=== PATIENT | female | born 1965 | race Caucasian/White ===

== ENCOUNTER → 2016-11-13 | Outpatient (CLI) | payer BC ==
--- NOTE | 2016-11-13 09:44 | MRI ---
EXAM DESCRIPTION: Lumbar Spine w/o Contrast CLINICAL HISTORY: LOW BACK PAIN COMPARISON: None Available. TECHNIQUE: Multi plantar multi sequence non contrast imaging. FINDINGS: There is good alignment of the lumbar spine. There is no vertebral pathology. No extra spinous abnormality is detected. L1-2: Unremarkable. L2-3: The disc is desiccated. There is mild loss of disc height. Mild endplate degenerative changes are observed. No disc bulge or disc herniation is seen. No neural foraminal disease is detected. L3-4: Unremarkable. L4-5: Unremarkable L5-S1: Unremarkable. IMPRESSION: No significant compromise of the subarachnoid space or exiting nerve roots is detected. No evidence of a significant disc bulge or disc herniation is seen. Electronically signed by: Efra Dorado MD 11/13/2016 9:43 AM CDT
== END | disposition home or self-care (01) ==
LOC: MRI 08:28
PROVIDERS: ATTEND Family Medicine
DX: M54.5 Low back pain (principal)

== ENCOUNTER → 2017-03-08 | Outpatient (CLI) | payer BC | END | disposition home or self-care (01) | LOC: GMAH 15:13 | PROVIDERS: ATTEND Family Medicine | DX: R53.82 Chronic fatigue, unspecified (principal); R53.81 Other malaise ==

== ENCOUNTER → 2017-04-05 | Outpatient (CLI) | payer BC | END | disposition home or self-care (01) | LOC: GMAH 14:16 | PROVIDERS: ATTEND Family Medicine | DX: N30.00 Acute cystitis without hematuria (principal) ==

== ENCOUNTER → 2017-06-04 | Outpatient (CLI) | payer BC | END | disposition home or self-care (01) | LOC: GMAH 14:17 | PROVIDERS: ATTEND Family Medicine | DX: N39.0 Urinary tract infection, site not specified (principal) ==

== ENCOUNTER → 2017-06-07 | Outpatient (CLI) | payer BC ==
--- NOTE | 2017-06-07 17:31 | US ---
EXAM DESCRIPTION: Gall Bladder CLINICAL HISTORY: 52 years Female, RIGHT UPPER QUADRANT PAIN COMPARISON: 01/21/2016 TECHNIQUE: Grayscale, waveform, and color Doppler images of the right upper quadrant are acquired. FINDINGS: Pancreas: The partially visualized pancreatic head is unremarkable Liver: Unremarkable Gallbladder: Layering stones are seen within the gallbladder. No wall thickening. Biliary ducts: The common bile duct measures 4 mm. Right Kidney: There is partially visualized hydronephrosis of the right kidney with probable renal stones. IMPRESSION: Cholelithiasis without other findings of acute cholecystitis. Right hydronephrosis not seen on MRI lumbar spine 11/13/2016. Probable right renal stones as well. Critical findings discussed with Dr. Koenig by Gen Garcia MD at 06/07/2017 5:29 PM CDT by phone. Electronically signed by: Gen Garcia MD 06/07/2017 5:30 PM CDT
--- NOTE | 2017-06-07 17:43 | CT ---
EXAM DESCRIPTION: Abdoment/Pelvis w/o Contrast CLINICAL HISTORY: 52 years Female, RLQ PAIN COMPARISON: Ultrasound of the right upper quadrant same day TECHNIQUE: Contiguous axial CT images of the abdomen and pelvis were acquired without administration of intravenous contrast. Coronal and sagittal reformatted images are provided. This exam was performed according to our departmental dose-optimization program which includes use of Automated Exposure Control, adjustment of the mA and/or kV according to patient size and/or use of iterative reconstruction technique. FINDINGS: Chest base: Coronary artery calcifications. Liver: Two subcentimeter hypoattenuating lesions within the right hepatic lobe are too small to characterize and likely represents small cyst or small angiomas. Gallbladder: No radiopaque stone is identified Spleen: Unremarkable. Adrenals: Unremarkable. Pancreas: Unremarkable. Right Kidney: A cluster of small stones measuring a conglomerate of 6 mm is seen within the distal right ureter, just proximal to the right UVJ resulting in moderate right hydronephrosis and hydroureter. Multiple subcentimeter stones are seen within the right renal pelvis. A probable right upper pole renal cyst is present as well. Left Kidney: Multiple subcentimeter stones are seen within the left renal pelvis without hydronephrosis. Aorta and branch vessels: Advanced aortoiliac calcific atherosclerosis. Lymph nodes: No lymphadenopathy. Bowels: No obstruction. Colon: No wall thickening. Appendix: Normal. Peritoneum: No free air or free fluid. Pelvic organs: Unremarkable. Bladder: Unremarkable. Bones and soft tissues: No acute osseous or soft tissue abnormalities. IMPRESSION: A cluster of 3-4 subcentimeter nonobstructing stones are seen within the distal right ureter, just proximal to the right UVJ, causing moderate right hydronephrosis and hydroureter. Obstructing stones measure a conglomerate of approximately 6 mm. Bilateral nonobstructing renal stones. Electronically signed by: Gen Garcia MD 06/07/2017 5:42 PM CDT
== END | disposition home or self-care (01) ==
LOC: RAD 16:23
PROVIDERS: ATTEND Family Medicine
DX: R10.31 Right lower quadrant pain (principal)

== ENCOUNTER → 2018-02-08 | Outpatient (CLI) | payer OTHER ==
--- NOTE | 2018-02-08 16:33 | CT ---
EXAM DESCRIPTION: Abdoment/Pelvis w/o Contrast CLINICAL HISTORY: CALCULUS OF KIDNEY COMPARISON: June 07, 2017 TECHNIQUE: Noncontrast transaxial CT images of the abdomen and pelvis are obtained. This exam was performed according to our departmental dose-optimization program, which includes automated exposure control, adjustment of the mA and/or kV according to patient size and/or use of iterative reconstruction technique . FINDINGS: Visualized lung bases are unremarkable. Given the limitations of a noncontrast exam there is a stable cyst of the dome of the right lobe liver and ill-defined less than 1 cm hypodensity in the inferior right lobe. Spleen, pancreas, adrenal glands, and contracted gallbladder are unremarkable. Moderate bilateral nonobstructing nephrolithiasis is again seen there has been interval resolution of the previously seen right hydronephrosis and previously seen ureteral calculus. Calcifications in the upper pole of the left kidney seen on previous exam are reduced. There is a new 7 mm calcification in the distal left ureter with mild left hydronephrosis and hydroureter. AP diameter of the left renal pelvis measures 2.7 cm. Urinary bladder is unremarkable. The uterus is unremarkable. No abnormal adnexal mass is seen. The appendix is normal. Stomach is poorly distended. No small bowel obstruction. No inflammatory changes of the bowel or abnormal fluid collections are seen. No pathologic lymphadenopathy. IMPRESSION: Interval resolution of right distal ureteral calculus and right hydronephrosis. Interval development of mild left hydronephrosis and hydroureter secondary to a 7 mm calcification in the distal ureter. Bilateral nonobstructing nephrolithiasis is again seen. Electronically signed by: Alphonso Green MD 02/08/2018 4:32 PM CDT
== END ==
LOC: RAD 15:45
PROVIDERS: ATTEND Family Medicine
DX: N13.2 Hydronephrosis with renal and ureteral calculous obstruction (principal)

== ENCOUNTER → 2018-03-31 | Outpatient (CLI) | payer BC | LOC: GMAJ 16:45 | PROVIDERS: ATTEND Family Medicine | DX: M06.9 Rheumatoid arthritis, unspecified (principal) ==

== ENCOUNTER 2018-05-27 03:34 | Emergency (ER) | payer BC ==
--- NOTE | 2018-05-27 03:44 | ED.PDOC ---
History of Present Illness - General Chief Complaint: Back Pain or Injury Stated Complaint: lower back pain Time Seen by Provider: 05/27/18 03:38 Source: patient, EMS Exam Limitations: no limitations - History of Present Illness Initial Comments: Mary Hendrickson 53 y/o female with history of bulging disc lumbar spine L4-L5 stated went to the bathroom early yesterday morning then on getting back to bed and tried to turn felt sharp pains on her back going down left leg then tried to move and get up stated feels back goes into muscle spasm since yesterday then she had been in bed all day yesterday and unable to get up because of pain and spasm also felt both sides of back aching with pain/spasm radiation down to both her legs.Denies bowel or bladder dysfunction no weakness,or numbness.Denies history of fall.Had seen back specialist in [place] and was given epidural steroid injection 3-4x 3 years ago and pain subsided.Had MRI- Lumbar 09/26/14-L4-L5 minimal broad based disc bulge more on the left than rightw /minimal effacement of thecal sac and repeat MRI 11/13/16-no disc bulge or disc herniation seen. Timing/Duration: 24 hours Quality/Severity: sharpness Back Pain Location: lumbar spine Back Pain Radiation: lower legs Method of Injury/Prior Injury: other - NONE Improving Factors: rest Worsening Factors: movement Associated Symptoms: muscle spasms, lower back pain, other - see hpi Allergies/Adverse Reactions: Allergies Codeine Allergy (Verified 05/27/18 04:04) Home Medications: Ambulatory Orders Budesonide-Formoterol Fumarate [Symbicort 160-4.5 Mcg/Act] 2 inh INH PRN Carisoprodol [Soma] 350 mg PO TID PRN #10 tab 05/27/18 Diclofenac [Zorvolex] 35 mg PO DAILY 05/27/18 Duloxetine HCl [Duloxetine HCl] 30 mg PO DAILY 05/27/18 Lisinopril [Prinivil] 20 mg PO DAILY 05/27/18 Simvastatin [Simvastatin] 40 mg PO DAILY 05/27/18 Review of Systems - Review of Systems Constitutional: States: no symptoms reported EENTM: States: no symptoms reported Respiratory: States: no symptoms reported Cardiology: States: no symptoms reported Gastrointestinal/Abdominal: States: no symptoms reported Genitourinary: States: no symptoms reported Musculoskeletal: States: see HPI, back pain Skin: States: no symptoms reported Neurological: States: other - radiculopathy Past Medical History (General) - Patient Medical History Hx Stroke: No Hx Congestive Heart Failure: No Hx Diabetes: No Hx MRSA: No Hx Other PMH: Yes - fibromyalgia;nephrolithiasis Surgical History: other - lithotripsy - Vaccination History Hx Influenza Vaccination: Yes - 2013 Hx Pneumococcal Vaccination: No - Social History Hx Tobacco Use: Yes - quit 1 year ago Hx Alcohol Use: No Hx Substance Use: No Hx Physical Abuse: No Hx Emotional Abuse: No - Activities of Daily Living Patient Lives Alone: No - Female History Patient : No Family Medical History - Family History Mother Living Status: Age at (years of age): 65 Cause of : lung CA Hx Cardiac Disease: Yes - parents Hx Family Diabetes: Yes - dad Hx Family Cancer: Yes Father Living Status: Still Living Hx Family Diabetes: Yes Physical Exam - Physical Exam General Appearance: Alert, Comfortable, No apparent distress Eyes, Ears, Nose, Throat Exam: normal ENT inspection Neck Exam: non-tender, full range of motion, normal alignment, normal inspection Cardiovascular/Respiratory: regular rate, rhythm, no M/R/G, normal peripheral pulses Peripheral Pulses: radial,right: 2+, radial,left: 2+, dorsalis pedis,right: 2+, dorsalis pedis,left: 2+ Gastrointestinal/Abdominal: normal bowel sounds, non tender, soft, no pulsatile mass Back Exam: normal inspection, no CVA tenderness, no vertebral tenderness, muscle spasm - paraspinous lumbar muscle Extremity Exam: no evidence of injury, normal range of motion, non-tender, no pedal edema Neurologic: no motor/sensory deficits, alert, oriented x 3, other - DTR 2+ bilaterally patellar,negative SLR test bilaterally Skin Exam: normal color, warm/dry Progress - Progress Progress: 05/27/18 04:24 Vital Signs - 8 hr 05/27/18 03:44 Temperature 98.9 F Pulse Rate [ 79 left] Respiratory 18 Rate Blood Pressure 133/65 [left] O2 Sat by Pulse 97 Oximetry - Results/Orders Results/Orders: 05/27/18 03:45 IV Care:Saline Lock per Protoc QSHIFT 05/27/18 05:36 URINALYSIS Stat Laboratory Results - last 24 hr 05/27/18 05/27/18 05/27/18 03:45 03:45 04:05 WBC 9.4 RBC 4.53 Hgb 13.9 Hct 41.4 MCV 91.2 MCH 30.7 MCHC 33.7 RDW 13.9 Plt Count 425 H MPV 7.5 Absolute Neuts (auto) 7.30 H Absolute Lymphs (auto) 1.30 Absolute Monos (auto) 0.50 Absolute Eos (auto) 0.10 Absolute Basos (auto) 0.10 Neutrophils % 78.1 H Lymphocytes % 13.9 L Monocytes % 5.7 Eosinophils % 1.4 Basophils % 0.9 Sodium 139 Potassium 3.9 Chloride 103 Carbon Dioxide 28 Anion Gap 11.9 L BUN 22 H Creatinine 0.58 L BUN/Creatinine Ratio 37.9 H Random Glucose 110 H Serum Osmolality 281.5 Calcium 9.2 Total Bilirubin 0.3 AST 60 H ALT 100 H Alkaline Phosphatase 72 Creatine Kinase Serum Total Protein 7.1 Albumin 4.0 Globulin 3.1 Albumin/Globulin Ratio 1.3 Serum HCG, Qual Negative 05/27/18 04:05 WBC RBC Hgb Hct MCV MCH MCHC RDW Plt Count MPV Absolute Neuts (auto) Absolute Lymphs (auto) Absolute Monos (auto) Absolute Eos (auto) Absolute Basos (auto) Neutrophils % Lymphocytes % Monocytes % Eosinophils % Basophils % Sodium Potassium Chloride Carbon Dioxide Anion Gap BUN Creatinine BUN/Creatinine Ratio Random Glucose Serum Osmolality Calcium Total Bilirubin AST ALT Alkaline Phosphatase Creatine Kinase 80 Serum Total Protein Albumin Globulin Albumin/Globulin Ratio Serum HCG, Qual Departure - Departure Clinical Impression: Abnormal liver enzymes Acute low back pain with left-sided sciatica Qualifiers: Back pain laterality: left Qualified Code(s): M54.42 - Lumbago with sciatica, left side Time of Disposition: 06:29 Disposition: Discharge to Home or Self Care Condition: Fair Departure Forms: ED Discharge - Pt. Copy, Patient Portal Self Enrollment Instructions: DI for Low Back Pain, DI for Back Spasm Referrals: Mayur Koenig MD [Primary Care Provider] - 1-2 Weeks Prescriptions: Carisoprodol [Soma] 350 mg PO TID PRN #10 tab PRN Reason: Muscle Spasms Home Medications: Ambulatory Orders Budesonide-Formoterol Fumarate [Symbicort 160-4.5 Mcg/Act] 2 inh INH PRN Carisoprodol [Soma] 350 mg PO TID PRN #10 tab 05/27/18 Diclofenac [Zorvolex] 35 mg PO DAILY 05/27/18 Duloxetine HCl [Duloxetine HCl] 30 mg PO DAILY 05/27/18 Lisinopril [Prinivil] 20 mg PO DAILY 05/27/18 Simvastatin [Simvastatin] 40 mg PO DAILY 05/27/18 Additional Instructions: Follow up with primary Md 30 May 2018;Retirn to ER as needed
[2018-05-27] MEDS ORDERED: MORPHINE SULFATE INJ 10 MG/ML VIAL IV ONE (03:45)
[2018-05-27] MEDS ORDERED: DEXAMETHASONE INJ 10 MG/ML VIAL IV ONE (03:45)
[2018-05-27] MEDS ORDERED: ORPHENADRINE CITRATE 30 MG/ML AMP IV ONE (03:45)
[2018-05-27] MEDS ORDERED: LACTATED RINGERS 1,000 ML IVS ONE (03:47)
[2018-05-27 03:58] VITALS: TEMP 98.9
[2018-05-27 05:37] VITALS: O2SAT 96
--- NOTE | 2018-05-27 06:16 | CT ---
CT lumbar spine without contrast on 05/27/2018 CLINICAL INDICATION: Low back pain with radiculitis TECHNIQUE: Multiple axial images are obtained throughout the lumbar spine without the administration of contrast. Sagittal and coronal reformatted images are also performed and reviewed. This exam was performed according to our departmental dose-optimization program, which includes automated exposure control, adjustment of the mA and/or kV according to patient size and/or use of iterative reconstruction technique. Total DLP is 471.98 mGy*cm. COMPARISON: 02/08/2018 FINDINGS: Vascular calcifications are noted. Reformatted images reveal normal alignment of the lumbar spine. Nonobstructing bilateral renal stones are noted. There are no acute fracture lines. Facet arthropathy is noted in the lower lumbar spine. The SI joints are well aligned. No definite disc herniation is noted. No level of significant canal stenosis or foraminal narrowing is noted. IMPRESSION: 1. No acute abnormality in the lumbar spine. 2. Bilateral nephrolithiasis. Electronically signed by: Michael Mandujano 05/27/2018 6:15 AM CDT
[2018-05-27] MEDS ORDERED: HYDROCOD/APAP 7.5/325 (ER DISP) #3 TAB PO ONE (06:33)
[2018-05-27 06:38] VITALS: BP 140/81
== END 2018-05-27 06:55 | disposition home or self-care (01) ==
LOC: ER 03:34
DX: M54.42 Lumbago with sciatica, left side (principal); R79.89 Other specified abnormal findings of blood chemistry; M79.7 Fibromyalgia; Z87.891 Personal history of nicotine dependence; Z79.899 Other long term (current) drug therapy; Z88.5 Allergy status to narcotic agent
CPT/HCPCS: 72131; 80053; 81001; 82550; 84703; 85025; J1100; J2270; J2360; J7120

== ENCOUNTER → 2019-02-01 | Outpatient (CLI) | payer BC ==
--- NOTE | 2019-02-02 09:59 | MRI ---
EXAM DESCRIPTION: Lumbar Spine w/o Contrast : Magnetic Resonance Imaging. CLINICAL HISTORY: DISC DISPLACEMENT COMPARISON: MRI scan lumbar spine 11/13/2016. TECHNIQUE: Multiplanar, multiple standard sequences, non contrast MRI, lumbar spine. FINDINGS: L5-S1: Disc is visualized on axial T2 series 501, image 3. Normal signal in the disc and disc space preserved. Minimal bilateral facet arthrosis and ligaments unremarkable. Mild to moderate foraminal narrowing. Canal is patent. No change from the prior study. L4-L5: Disc desiccation with disc space maintained. Trace posterior bulge with hyperintense T2 annular fissure. Mild canal narrowing. Minimal arthrosis left facet with thickening of the flavum ligament. Bilateral mild canal narrowing. Stable since the prior study. L3-L4: Disc desiccation with disc space maintained no bulging. Minimal facet arthrosis and flavum ligament thickening on the left. Minimal posterior endplate reactive changes. Mild bilateral foraminal narrowing. Stable since the prior study. L2-L3: Disc desiccation with minimal disc space loss. Anterior bulging. Anterior and posterior endplate reactive changes with no posterior bulging. Posterior elements unremarkable. Canal and foramina are patent. No change from the prior study. L1-L2: Normal signal in the disc and disc space preserved. Posterior elements unremarkable. Canal and bilateral foramina are patent. Stable since the prior study. T12-L1: Normal signal in the disc with disc space preserved. Posterior elements unremarkable. Canal and foramina are patent. No change from the prior study. Conus terminates at L1. Normal signal in the cord and the conus. No scoliosis. Paravertebral soft tissues unremarkable.. Normal marrow signal in the remaining vertebral bodies and the posterior elements. Vertebral bodies are not compressed at any level. IMPRESSION: 1. Minimal arthrosis and hypertrophic changes in the facets and hypertrophic ligaments at several levels. Stable since the prior study. No significant canal or foraminal narrowing at any level. No disc herniation. 2. Tiny posterior bulge L4-L5 with annular fissure. No change since the prior study. Electronically signed by: Raciel Richardson MD 02/02/2019 9:57 AM CDT
== END ==
LOC: MRI 12:49
PROVIDERS: ATTEND Family Medicine
DX: M51.27 Other intervertebral disc displacement, lumbosacral region (principal); M51.86 Other intervertebral disc disorders, lumbar region; M47.896 Other spondylosis, lumbar region

== ENCOUNTER → 2019-08-07 | Outpatient (CLI) | payer BC | LOC: GMAJ 10:21 | PROVIDERS: ATTEND Family Medicine | DX: R74.8 Abnormal levels of other serum enzymes (principal) ==

== ENCOUNTER → 2019-08-08 | Outpatient (CLI) | payer BC ==
--- NOTE | 2019-08-08 11:48 | CT ---
EXAM DESCRIPTION: Abdomen w/Contrast CLINICAL HISTORY: ABNORMAL LEVELS OF OTHER SERUM ENZYMES COMPARISON: February 08, 2018 TECHNIQUE: Postcontrast CT images of the abdomen are obtained. This exam was performed according to our departmental dose-optimization program, which includes automated exposure control, adjustment of the mA and/or kV according to patient size and/or use of iterative reconstruction technique . FINDINGS: Visualized lung bases show no acute findings. Heterogeneous decreased attenuation of the liver compared to the spleen without focal enhancing hepatic mass. Right lobe of the liver measures 16.5 cm AP which is borderline enlarged. Fluid attenuation 14 mm cyst in the dome of the right lobe liver. The spleen, pancreas, adrenal glands, and gallbladder are unremarkable. Moderate calcific atherosclerotic disease of the abdominal aorta and branch vessels. Bilateral nonobstructing nephrolithiasis. The largest calcification in an upper pole calyx of the right kidney measures 10 mm. Most calcifications are seen in the lower pole calyces of the left kidney measuring maximum 7 mm. No ureteral obstruction. Small less than 1 cm cortical cyst of the upper pole right kidney is seen. No pathologic lymphadenopathy in the abdomen or retroperitoneum. Stomach shows no mass lesion or inflammatory changes. Visualized small bowel and colon show no acute findings. Mild scattered diverticuli of the descending colon. The appendix is partly visualized. IMPRESSION: No acute findings on CT of the abdomen. Mild diffuse fatty infiltration of the liver seen. Mild colon diverticulosis without CT evidence of diverticulitis. No adrenal gland mass. Nonobstructing bilateral nephrolithiasis. 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
== END ==
LOC: CT 07:54
PROVIDERS: ATTEND Family Medicine
DX: R74.8 Abnormal levels of other serum enzymes (principal); K76.0 Fatty (change of) liver, not elsewhere classified; K57.30 Diverticulosis of large intestine without perforation or abscess without bleeding; N20.0 Calculus of kidney

== ENCOUNTER 2019-11-15 21:16 | Emergency (ER) | payer BC ==
[2019-11-15] MEDS ORDERED: SODIUM CHLORIDE 0.9% (FLUSH) 10 ML SYG IV PRN (21:25)
[2019-11-15] MEDS ORDERED: ONDANSETRON INJ 4 MG/2 ML VIAL IV ONE (21:25)
[2019-11-15 21:40] VITALS: TEMP 96.7
[2019-11-15] MEDS ORDERED: fentaNYL CITRATE INJ 50 MCG/ML AMP IV ONE (22:47)
[2019-11-15] MEDS ORDERED: MEPERIDINE HCL 50 MG/ML VIAL IV ONE (23:12)
--- NOTE | 2019-11-15 23:26 | CT ---
PROCEDURE: CT Abdomen w/Contrast CLINICAL HISTORY: 54 years Female abdominal pain TECHNIQUE: Contiguous axial images obtained through the abdomen following intravenous contrast administration. Coronal and sagittal reformatted images provided. This CT exam was performed according to our departmental dose-optimization program, which includes one or more of the following dose reduction techniques: automated exposure control, adjustment of the mA and/or kV according to patient size, and/or use of iterative reconstruction technique. COMPARISON: 02/08/2018 FINDINGS: There is steatosis of the liver, which contains a 1.4 cm cyst. The lung bases, biliary tree, gallbladder, pancreas, spleen, and adrenal glands are normal. Again seen are nonobstructing intrarenal calculi bilaterally. There is no hydronephrosis or pyelonephritis on either side. No visualized bowel inflammation or evidence of obstruction. No free intraperitoneal air or ascites. The distal appendix is normal. The proximal appendix was not imaged. There is extensive atherosclerosis without abdominal aortic aneurysm or retroperitoneal hemorrhage. No acute osseous abnormality. IMPRESSION: No acute findings in the abdomen. Steatosis of the liver, which contains a small cyst. Bilateral nephrolithiasis without hydronephrosis or pyelonephritis. Electronically signed by: Tiana Estevez MD 11/15/2019 11:24 PM CDT
--- NOTE | 2019-11-16 00:14 | ED.PDOC ---
History of Present Illness - General Chief Complaint: Abdominal Pain Stated Complaint: upper abdomen pain Time Seen by Provider: 11/15/19 21:25 Information Source: patient, RN notes reviewed, Vital Signs reviewed, family - Exam Limitations: no limitations - History of Present Illness Initial Comments: Patient is a 54-year-old white female who is obese who presents with complaints of diffuse abdominal pain after eating. This happened twice today. Patient has a history of gallstones. It is been many years since she had an ultrasound that confirmed the gallstones are still in place. Patient denies any fever, chills, diarrhea. She denies any chest pain, shortness of breath, dizziness or blurry vision. The pain was made worse by eating. Better when she quit eating. It took a few hours for the pain to subside a little bit. The pain is cramping and stabbing in nature. It is nonradiating. It is diffuse throughout the abdomen. Abdominal Pain Onset Location: generalized abdomen Pain Radiation: no radiation Quality: severe, sharpness, waxing/waning Timing/Duration: 4-6 hours Improving Factors: rest Worsening Factors: eating Associated Symptoms: nausea/vomiting - Nausea only Review of Systems - Review of Systems Constitutional: States: no symptoms reported, see HPI. Denies: chills, fever, weakness EENTM: States: no symptoms reported. Denies: blurred vision, double vision, throat pain, throat swelling Respiratory: States: no symptoms reported. Denies: cough, short of breath, stridor, wheezing Cardiology: States: no symptoms reported. Denies: chest pain, palpitations, syncope Gastrointestinal/Abdominal: States: see HPI, abdominal pain, nausea. Denies: diarrhea, vomiting Genitourinary: States: no symptoms reported. Denies: discharge, dysuria, frequency Musculoskeletal: States: no symptoms reported. Denies: back pain, neck pain Skin: States: no symptoms reported. Denies: change in color, rash Neurological: States: no symptoms reported. Denies: headache, numbness, tingling, weakness Endocrine: States: no symptoms reported. Denies: intolerance to cold, intolerance to heat Hematologic/Lymphatic: States: no symptoms reported. Denies: anemia, easy bruising All other Systems: Reviewed and Negative Past Medical History (General) - Patient Medical History Hx Seizures: No Hx Stroke: No Hx Dementia: No Hx Asthma: No Hx of COPD: No Hx Cardiac Disorders: No Hx Congestive Heart Failure: No Hx Pacemaker: No Hx Hypertension: Yes Hx Thyroid Disease: No Hx Diabetes: No Hx Gastroesophageal Reflux: No Hx Renal Disease: No Hx of HIV: No Hx MRSA: No Surgical History: no surgical history - Vaccination History Hx Tetanus, Diphtheria Vaccination: No Hx Influenza Vaccination: Yes Hx Pneumococcal Vaccination: No - Social History Hx Tobacco Use: Yes - quit 1 year ago Hx Alcohol Use: No Hx Substance Use: No Hx Physical Abuse: No Hx Emotional Abuse: No - Female History Patient : No Family Medical History - Family History Mother Living Status: Age at (years of age): 65 Cause of : lung CA Hx Cardiac Disease: Yes - parents Hx Family Diabetes: Yes - dad Hx Family Cancer: Yes Father Living Status: Still Living Hx Family Diabetes: Yes Physical Exam - Physical Exam General Appearance: Alert, Anxious, Obvious distress, Well Developed, Well Groomed, Well Hydrated Eyes, Ears, Nose, Throat Exam: PERRL/EOMI, normal ENT inspection, pharynx normal Neck: non-tender, full range of motion, supple, normal inspection Respiratory: chest non-tender, lungs clear, normal breath sounds, no respiratory distress Cardiovascular/Chest: normal peripheral pulses, regular rate, rhythm, no edema Peripheral Pulses: No deficit Gastrointestinal/Abdominal: normal bowel sounds, soft, no organomegaly, no pulsatile mass, tenderness - Generalized Back Exam: normal inspection, no CVA tenderness, no vertebral tenderness Extremity: non-tender, normal inspection, no pedal edema, no calf tenderness 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 11/16/19 00:56 Patient's pain has improved markedly after pain medicines and IM Bentyl. Patient has no acute signs of infection on CT nor by lab work. Her LFTs are minimally elevated and do not indicate an acute obstruction. Plan on discharge home with a prescription for Bentyl. Patient to follow-up with the surgeon tomorrow for an outpatient ultrasound and further evaluation for surgical intervention. I discussed this plan of care with the patient and her and they voiced understanding and agreement. Moe Chahal M.D. #[id number] - Results/Orders Results/Orders: 11/15/19 Abdomen/Pelvis w/Contrast [CT] Stat 11/15/19 21:25 IV Care:Saline Lock per Protoc QSHIFT Sodium Chloride 0.9% (Flush) [Saline Flush Syringe] 10 ml IV PRN PRN 11/15/19 21:26 Hold Metformin x 48Hrs [id number] 11/15/19 21:30 EKG STAT 11/15/19 21:50 Urine Culture Stat Laboratory Results - last 24 hr 11/15/19 11/15/19 11/15/19 21:30 21:30 21:30 WBC 8.7 RBC 4.43 Hgb 13.7 Hct 39.9 MCV 90.0 MCH 30.9 MCHC 34.3 RDW 14.0 Plt Count 463 H MPV 8.1 Absolute Neuts (auto) 4.80 Absolute Lymphs (auto) 3.00 Absolute Monos (auto) 0.50 Absolute Eos (auto) 0.40 Absolute Basos (auto) 0.00 Neutrophils % 55.1 Lymphocytes % 34.4 Monocytes % 5.8 Eosinophils % 4.4 Basophils % 0.3 Sodium 142 Potassium 3.6 Chloride 101 Carbon Dioxide 29 Anion Gap 15.6 BUN 15 Creatinine 0.77 BUN/Creatinine Ratio 19.5 Random Glucose 113 H Serum Osmolality 284.8 Calcium 9.5 Total Bilirubin 0.3 Direct Bilirubin 0.1 Indirect Bilirubin 0.2 AST 41 ALT 63 H Alkaline Phosphatase 88 Serum Total Protein 7.9 Albumin 4.4 Lipase 46 Urine Color Urine Appearance Urine pH Ur Specific Cordell Urine Protein Urine Glucose (UA) Urine Ketones Urine Blood Urine Nitrite Urine Bilirubin Urine Urobilinogen Ur Leukocyte Esterase Urine RBC Urine WBC Ur Epithelial Cells Urine Bacteria 11/15/19 21:50 WBC RBC Hgb Hct MCV MCH MCHC RDW Plt Count MPV Absolute Neuts (auto) Absolute Lymphs (auto) Absolute Monos (auto) Absolute Eos (auto) Absolute Basos (auto) Neutrophils % Lymphocytes % Monocytes % Eosinophils % Basophils % Sodium Potassium Chloride Carbon Dioxide Anion Gap BUN Creatinine BUN/Creatinine Ratio Random Glucose Serum Osmolality Calcium Total Bilirubin Direct Bilirubin Indirect Bilirubin AST ALT Alkaline Phosphatase Serum Total Protein Albumin Lipase Urine Color Yellow Urine Appearance Clear Urine pH 7.0 Ur Specific Cordell 1.025 Urine Protein Negative Urine Glucose (UA) Negative Urine Ketones Negative Urine Blood Trace-intact H Urine Nitrite Negative Urine Bilirubin Negative Urine Urobilinogen 0.2 Ur Leukocyte Esterase Small H Urine RBC 1-3 Urine WBC 3-5 H Ur Epithelial Cells 0-1 Urine Bacteria 0 EKG performed 15 November 2019 at 2148 hrs.: Normal sinus rhythm at 80 bpm, nonspecific ST changes, abnormal EKG. No comparison EKG available. PROCEDURE: CT Abdomen/Pelvis w/Contrast CLINICAL HISTORY: 54 years Female ABD PAIN TECHNIQUE: Contiguous axial images obtained through the abdomen and pelvis following intravenous contrast administration. Coronal and sagittal reformatted images provided. This CT exam was performed according to our departmental dose-optimization program, which includes one or more of the following dose reduction techniques: automated exposure control, adjustment of the mA and/or kV according to patient size, and/or use of iterative reconstruction technique. COMPARISON: Comparison is made with the prior exam dated 08/08/2019. FINDINGS: The lung bases are clear. There is steatosis of the liver, which contains a 1.4 cm cyst. The gallbladder is distended but does not appear inflamed. No intra or extrahepatic biliary dilatation. The pancreas, spleen, and adrenal glands are normal. Again seen are nonobstructing intrarenal calculi bilaterally. There is no hydronephrosis or pyelonephritis on either side. The uterus, adnexa, and urinary bladder are normal. Scattered colonic diverticuli without bowel inflammation, obstruction, pneumatosis, free intraperitoneal air, abscess, or ascites. Normal appendix. Extensive atherosclerosis without abdominal aortic aneurysm or retroperitoneal hemorrhage. Mild chronic degenerative changes in the spine without acute fracture or aggressive osseous lesion. IMPRESSION: The gallbladder is distended but does not appear inflamed. If there is right upper quadrant pain, ultrasound recommended. Stable bilateral nephrolithiasis without urinary obstruction or pyelonephritis. Colonic diverticulosis without diverticulitis. Electronically signed by: Tiana Estevez MD 11/16/2019 12:15 AM CDT Departure - Departure Clinical Impression: Elevated ALT measurement, Abnormal liver enzymes Abdominal pain Qualifiers: Abdominal location: generalized Qualified Code(s): R10.84 - Generalized abdominal pain Time of Disposition: 00:58 Disposition: Discharge to Home or Self Care Condition: Good Departure Forms: ED Discharge - Pt. Copy, Patient Portal Self Enrollment Instructions: DI for Abdominal Pain-Adult, Gallstones (DC) Diet: low fat, low cholesterol Activity: increase activity as tolerated Referrals: Gen Jimenes MD [Primary Care Provider] - 1-2 Weeks Florencio Champagne MD [Active Staff] - 1-5 Days Prescriptions: Dicyclomine HCl [Bentyl] 20 mg PO Q6H #20 tab Home Medications: Ambulatory Orders Budesonide-Formoterol Fumarate [Symbicort 160-4.5 Mcg/Act] 2 inh INH PRN 05/27/18 Carisoprodol [Soma] 350 mg PO TID PRN #10 tab 05/27/18 Diclofenac [Zorvolex] 35 mg PO DAILY 05/27/18 Duloxetine HCl 30 mg PO DAILY 05/27/18 Lisinopril [Prinivil] 20 mg PO DAILY 05/27/18 Simvastatin 40 mg PO DAILY 05/27/18 Dicyclomine HCl [Bentyl] 20 mg PO Q6H #20 tab 11/16/19
--- NOTE | 2019-11-16 00:17 | CT ---
PROCEDURE: CT Abdomen/Pelvis w/Contrast CLINICAL HISTORY: 54 years Female ABD PAIN TECHNIQUE: Contiguous axial images obtained through the abdomen and pelvis following intravenous contrast administration. Coronal and sagittal reformatted images provided. This CT exam was performed according to our departmental dose-optimization program, which includes one or more of the following dose reduction techniques: automated exposure control, adjustment of the mA and/or kV according to patient size, and/or use of iterative reconstruction technique. COMPARISON: Comparison is made with the prior exam dated 08/08/2019. FINDINGS: The lung bases are clear. There is steatosis of the liver, which contains a 1.4 cm cyst. The gallbladder is distended but does not appear inflamed. No intra or extrahepatic biliary dilatation. The pancreas, spleen, and adrenal glands are normal. Again seen are nonobstructing intrarenal calculi bilaterally. There is no hydronephrosis or pyelonephritis on either side. The uterus, adnexa, and urinary bladder are normal. Scattered colonic diverticuli without bowel inflammation, obstruction, pneumatosis, free intraperitoneal air, abscess, or ascites. Normal appendix. Extensive atherosclerosis without abdominal aortic aneurysm or retroperitoneal hemorrhage. Mild chronic degenerative changes in the spine without acute fracture or aggressive osseous lesion. IMPRESSION: The gallbladder is distended but does not appear inflamed. If there is right upper quadrant pain, ultrasound recommended. Stable bilateral nephrolithiasis without urinary obstruction or pyelonephritis. Colonic diverticulosis without diverticulitis. Electronically signed by: Tiana Estevez MD 11/16/2019 12:15 AM CDT
[2019-11-16] MEDS ORDERED: fentaNYL CITRATE INJ 50 MCG/ML AMP IV ONE (00:43)
[2019-11-16] MEDS ORDERED: DICYCLOMINE HCL INJ 20 MG/2 ML AMP IM ONE (00:43)
[2019-11-16 01:06] VITALS: BP 140/94; O2SAT 98
== END 2019-11-16 01:12 | disposition home or self-care (01) ==
LOC: ER 21:16
DX: R10.84 Generalized abdominal pain (principal); R94.5 Abnormal results of liver function studies; R74.0 Nonspecific elevation of levels of transaminase and lactic acid dehydrogenase [LDH]; R11.0 Nausea; N20.0 Calculus of kidney; K57.30 Diverticulosis of large intestine without perforation or abscess without bleeding; I10 Essential (primary) hypertension; Z87.891 Personal history of nicotine dependence
CPT/HCPCS: 36415; 74177; 80048; 80076; 81001; 83690; 85025; 87086; 93005; J0500; J2175; J2405; J3010

== ENCOUNTER 2019-12-22 08:00 | Day surgery (SDC) | payer BC ==
[~2019-12-22 08:00] MED LIST: DEXAMETHASONE INJ 10 MG/ML VIAL ONE; FAMOTIDINE 10 MG/ML ML IV ONE; KETOROLAC TROMETHAMINE INJ 30 MG/ML VIAL ONE; LIDOCAINE 1% 10 ML VIAL INJ ONE; MAGNESIUM SULFATE INJ 1 GM/2 ML VIAL ONE; PROPOFOL 200 MG/20 ML VIAL IV ONE; SODIUM CHLORIDE 0.9% 50 ML VIAL ONE; diphenhydrAMINE HCL 50 MG/ML VIAL ONE
[2019-12-22] MEDS ORDERED: LACTATED RINGERS 1,000 ML ONE ×2 (08:45→12:02)
[2019-12-22] MEDS ORDERED: LACTATED RINGERS 1,000 ML IVS ONE (09:15)
[2019-12-22] MEDS ORDERED: BUPIVACAINE 0.5% 30 ML VIAL INJ ONE ×2 (09:38→09:50)
[2019-12-22] MEDS ORDERED: KETAMINE HCL 100 MG/ML VIAL ONE (09:40)
[2019-12-22] MEDS ORDERED: ROCURONIUM BROMIDE 10 MG/ML VIAL ONE (09:40)
[2019-12-22] MEDS ORDERED: fentaNYL CITRATE INJ 50 MCG/ML 2 ML AMP ONE (09:40)
[2019-12-22] MEDS ORDERED: MIDAZOLAM INJ 2 MG/2 ML VIAL ONE (09:41)
[2019-12-22] MEDS ORDERED: SUGAMMADEX SODIUM 200 MG/2 ML VIAL IV ONE (10:41)
[2019-12-22] MEDS ORDERED: LEVALBUTEROL NEBS 1.25 MG/3 ML VIAL NEB ONE (11:03)
[2019-12-22] MEDS ORDERED: ONDANSETRON INJ 4 MG/2 ML VIAL ONE (11:14)
[2019-12-22] MEDS: HYDROmorphone HCL INJ 2 MG/ML VIAL ONE ×3 (11:21→12:03)
--- NOTE | 2019-12-22 11:30 | OP ---
DATE OF PROCEDURE: 12/22/19 PREOPERATIVE DIAGNOSIS: 1. Symptomatic gallstones. POSTOPERATIVE DIAGNOSIS: 1. Chronic cholecystitis. PROCEDURE: 1. Laparoscopic cholecystectomy. SURGEON: Gen Cyr MD. ANESTHESIA: General and local. FINDINGS: There is evidence of chronic inflammation and scarred gallbladder. Anatomy was poorly visualized. COMPLICATIONS: None. ESTIMATED BLOOD LOSS: Minimal. SPECIMEN: Gallbladder. PLAN: Discharge. INDICATION: As stated. PROCEDURE: General anesthesia was induced. The patient was prepped and draped in sterile fashion. Marcaine 0.5% with epinephrine was used at all incision sites. While maintaining upward traction, a radha was made near the base of the umbilicus. Veress needle was introduced. There was free flow of fluid into the peritoneal cavity which was insufflated to an appropriate level with CO2 gas. The 5 mm trocar was placed followed by the camera. There was no evidence of bleeding or bowel injury. The patient was positioned and subxiphoid and lateral ports were placed under direct visualization without difficulty. The gallbladder fundus was identified. It was grasped and retracted superiorly and laterally. There were anterior scars that were taken down. The infundibulum was grasped. The infundibular structures were dissected free. The duct and artery were triply ligated. The gallbladder was then dissected off the fossa. In the mid fossa, there was small extravascular branch going into the posterior wall. This was clipped as well. Once the gallbladder was removed from the fossa, it was removed from the abdomen in the EndoCatch bag. The fossa was examined. Minimal hemostasis was necessary. The clips were intact. There was no bleeding or bile leak. The area was irrigated. All aspirate was clear. The subxiphoid fascia was then closed with 0 Vicryl using the suture passer. It was airtight and non-bleeding. The remaining trocars were removed. There was no bleeding from the trocar sites. The wounds were irrigated and closed with Monocryl. Dressings were applied. The patient was awakened and taken to Recovery to be discharged. #[id number] cc: Gen Jimenes MD [facility]
[2019-12-22] MEDS ORDERED: PROMETHAZINE HCL INJ 25 MG/ML VIAL ONE (11:34)
[2019-12-22] MEDS ORDERED: HYDROcodone 5MG/APAP 325MG 1 EA TAB ONE (12:46)
[2019-12-22 13:54] VITALS: BP 129/73; TEMP 99.5; O2SAT 93
== END 2019-12-22 13:45 | disposition home or self-care (01) ==
LOC: AMB 08:00
PROVIDERS: ATTEND Surgery
DX: K80.10 Calculus of gallbladder with chronic cholecystitis without obstruction (principal); I10 Essential (primary) hypertension; J45.909 Unspecified asthma, uncomplicated; E78.00 Pure hypercholesterolemia, unspecified; M79.7 Fibromyalgia; Z88.5 Allergy status to narcotic agent; Z88.0 Allergy status to penicillin; Z87.442 Personal history of urinary calculi; Z79.899 Other long term (current) drug therapy; Z87.891 Personal history of nicotine dependence
CPT/HCPCS: 00790; 47562; 94640; A4216; J1100; J1170; J1200; J1885; J2250; J2405; J2550; J3010; J3475; J3490; J7120; J7614